=== PATIENT | male | born 1985 | race Caucasian/White ===

== ENCOUNTER 2020-02-17 09:25 | Emergency (ER) | payer OTHER, SELFPAY ==
--- NOTE | ~2020-02-17 | CT_ITS ---
EXAMINATION: CT facial bones w con DATE: 02/17/2020 10:31 INDICATION: Left facial swelling. Left ear pain. TECHNIQUE: Computed tomography (CT) of the facial bones and maxillofacial region was performed with 7 5 mL Omnipaque 350 intravenous contrast. Automated exposure control and iterative reconstruction tech RIWIque were employed. The dose-length product was 272.57 mGy-cm. COMPARISON: None. FINDINGS: There is edema in left face right and centered at the parotid gland. No sialolith. There ar e no pathologically enlarged lymph nodes. There is mild mucosal thickening in the paranasal sinuses. The mastoid air cells are normal. There is extensive dental disease. Tooth 2 demonstrates a carious l esion and periapical lucencies. Teeth 14, 15, 18, 19, and 30 demonstrate carious lesions. IMPRESSION: 1. Left face soft tissue swelling centered at the parotid gland, consistent with parotiditis. 2. Dental disease. Reviewed, dictated and finalized at location A. IMPRESSION: 1. Left face soft tissue swelling centered at the parotid gland, consistent wit h parotiditis. 2. Dental disease.
[2020-02-17 09:29] VITALS: BP 145/85; PULSE 88; RESP 16; TEMP 36.9; O2SAT 100
--- NOTE | 2020-02-17 09:44 | ED.DENTAL ---
HPI - Dental/Oral General Chief complaint: Dental/Oral Stated complaint: face swelling Time Seen by Provider: 02/17/20 09:32 Source: patient Mode of arrival: ambulatory Limitations: no limitations History of Present Illness HPI Narrative: A 34 y/o male presents to the ED, with c/o lt sided facial pain, swelling, and redness x several days that is worsening. Pt notes the pain and swelling starts at the lt lower side of his face and radiates up towards his mormon. He denies any injury to the area or any teeth problems or pain. Pt denies N/V, ABD pain, VITAL, difficulty or pain with swallowing, ear pain, fever, or SOB. He reports no significant PMHx and has NKA. Pt notes an occasional smoking hx and occasional alcohol use. Onset (ago): day(s) Duration: worsening Context: other (denies history of dental problems) Associated symptoms: other (lt sided facial swelling, pain and redness) Related Data Allergies Allergy/AdvReac Type Severity Reaction Status Date / Time No Known Allergies Allergy Verified 02/17/20 09:32 Review of Systems Review of Systems: All systems reviewed & are unremarkable except as noted in HPI and below Constitutional: Constitutional: Denies fever(s) and Denies headache(s) ENT: Denies dental pain, Denies dysphagia, Denies otalgia and Reports other (lt sided facial swelling, pain and redness) Respiratory: Respiratory: Denies dyspnea Gastrointestinal: Gastrointestinal: Denies abdominal pain, Denies nausea and Denies vomiting PMFSH Past Medical History Medical History (Updated 02/17/20 @ 11:09 by Michelle Rosas MD) No significant past medical history Surgical History Surgical History (Updated 02/17/20 @ 10:25 by Nicole PrietoPoikos) No significant past surgical history Social History Social History (Updated 02/17/20 @ 10:25 by Nicoel PrietoPoikos) Smoking status: Current some day smoker Tobacco type: cigarettes Alcohol intake: current Alcohol use details: occasional Exam Narrative: Exam Narrative: GENERAL: Well-appearing, well-nourished, and in no acute distress. HEAD: Normocephalic, atraumatic EYES: PERRLA and EOMI, EARS: TM's clear bilaterally without erythema or dullness THROAT:Mucous membranes moist, Oropharynx normal without erythema, exudate, peritonsillar swelling or fluctuance NECK: Supple, without lymphadenopathy or mass RESPIRATORY: No respiratory distress, Airway patent, Respirations non-labored, Clear to auscultation without rales, rhonchi or wheeze HEART: Regular rate and rhythm. No murmur heard. Normal peripheral pulses. ABDOMEN: Soft, nontender, nondistended, normal active bowel sounds. No masses. No rebound or guarding, No organomegaly. EXTREMITIES: No edema, normal strength with full range of motion. NEURO: Alert and oriented x3. CN 2-12 grossly intact. No focal deficits. PSYCH: Normal mood and affect. HENMT: Mouth: Yes other (mild erythema, swelling tenderness pre aurically at parotid gland) Course Vital Signs Vital signs: Vital Signs Temperature 98.5 F 02/17/20 09:29 Pulse Rate 88 02/17/20 09:29 Respiratory Rate 16 02/17/20 09:29 Blood Pressure 145/85 H 02/17/20 09:29 Pulse Oximetry 100 02/17/20 09:29 Temperature 98.5 F 02/17/20 09:29 Pulse Rate 88 02/17/20 09:29 Respiratory Rate 16 02/17/20 09:29 Blood Pressure 145/85 H 02/17/20 09:29 Pulse Oximetry 100 02/17/20 09:29 MDM - Dental/Oral Lab Data Result diagrams: 02/17/20 10:03 02/17/20 10:26 Labs: Lab Results 02/17/20 02/17/20 02/17/20 Range/Units 10:03 10:03 10:03 WBC 7.1 (4.5-10.0) K/mm3 RBC 4.55 L (4.6-6.20) M/mm3 Hgb 13.7 L (14.0-18.0) g/dL Hct 41.3 L (42.0-52.0) % MCV 90.8 (80-100) fl MCH 30.1 (26-34) pg MCHC 33.2 (32-36) g/dl RDW 12.5 (11.5-14.5) % Plt Count 234 (150-375) k/mm3 MPV 9.3 (7.4-10.4) fl Immature Gran % (Auto) 0.3 (0-0.5) % Ne
[2020-02-17 10:15] LABS: Basophils Absolute Auto 0.1 K/mm3 (0.0-0.1); Basophils Percent Auto 0.9 % (0.2-1.2); Eosinophils Absolute Auto 0.3 K/mm3 (0-0.3); Eosinophils Percent Auto 3.8 % (0-4.4); Hematocrit 41.3 % (42.0-52.0); Hemoglobin 13.7 g/dL (14.0-18.0); Immature Granulocyte Absolute 0.02 K/mm3 (0.00-0.031); Immature Granulocyte Percent A 0.3 % (0-0.5); Lymphocytes Absolute Auto 1.36 K/mm3 (0.9-3.2); Lymphocytes Percent Auto 19.3 % (18.3-44.2); Mean Corpuscular HGB Conc 33.2 g/dl (32-36); Mean Corpuscular Hemoglobin 30.1 pg (26-34); Mean Corpuscular Volume 90.8 fl (80-100); Mean Platelet Volume 9.3 fl (7.4-10.4); Monocytes Absolute Auto 0.9 K/mm3 (0.1-0.6); Monocytes Percent Auto 12.5 % (2.6-8.5); Neutrophils Absolute Auto 4.5 K/mm3 (1.3-6.7); Neutrophils Percent Auto 63.2 % (45.5-73.1); Platelet Count Result 234 k/mm3 (150-375); Red Blood Count 4.55 M/mm3 (4.6-6.20); Red Cell Distribution Width 12.5 % (11.5-14.5); White Blood Count 7.1 K/mm3 (4.5-10.0)
[2020-02-17 10:26] LABS: Blood Urea Nitrogen 12 mg/dL (9-20); Calcium 8.7 mg/dL (8.4-10.2); Carbon Dioxide 27 mmol/L (22-30); Chloride 102 mmol/L (98-107); Estimated CRCL calculation 105 ml/min; Estimated Glomerular Filt Rate > 60; Glucose 106 mg/dL (75-110); Potassium 4.1 mmol/L (3.4-5.0); Sodium 135 mmol/L (137-145)
[2020-02-17 10:43] LABS: CRP 1.4 mg/dL (<1.0)
[2020-02-17 11:00] LABS: Estimated CRCL calculation 105 ml/min; Estimated Glomerular Filt Rate > 60
== END 2020-02-17 11:22 | disposition home or self-care (01) ==
PROVIDERS: Emergency Provider General Practice
DX: K11.20 Sialoadenitis, unspecified (principal); F17.210 Nicotine dependence, cigarettes, uncomplicated
CPT/HCPCS: 36415; 70487; 80048; 85025; 86140; 99284; Q9967